=== PATIENT | male | born 1980 | race Caucasian/White ===

== ENCOUNTER 2018-06-24 07:33 | Emergency (ER) | payer OTHER ==
--- NOTE | 2018-06-24 07:37 | EDPHY ---
H & P Time Seen by Provider: 06/24/18 07:37 HPI/ROS: CHIEF COMPLAINT: Epigastric discomfort HISTORY OF PRESENT ILLNESS: The patient presents to the ED with complaints of severe by gastric discomfort which began last night. The patient denies any vomiting, hematemesis or melena. He denies significant alcohol or NSAID usage. The patient was seen at urgent care and discharged home yesterday. He returns to the ED today secondary to ongoing symptoms. The patient denies any lower abdominal complaints. He has no prior history of abdominal surgery. The patient denies any urinary complaints. REVIEW OF SYSTEMS: A comprehensive 10 point review of systems is otherwise negative aside from elements mentioned in the history of present illness. Source: Patient Exam Limitations: No limitations - Medical/Surgical History PMH: Past medical history: Noncontributory - Family History Significant Family History: No pertinent family hx - Social History Smoking Status: Never smoked Alcohol Use: Rarely - Physical Exam Exam: General Appearance: Alert, no distress Eyes: Pupils equal and round no pallor or injection ENT, Mouth: Mucous membranes moist Respiratory: There are no retractions, lungs are clear to auscultation Cardiovascular: Regular rate and rhythm Gastrointestinal: Moderate tenderness noted in the epigastrium, no peritoneal signs, normal bowel sounds Neurological: 5/5 strength noted all 4 extremities Skin: Warm and dry, no rashes Musculoskeletal: Neck is supple nontender Extremities: symmetrical, full range of motion Psychiatric: Patient is oriented X 3, there is no agitation Constitutional: Initial Vital Signs Temperature (C) 36.7 C 06/24/18 07:37 Heart Rate 67 06/24/18 07:37 Respiratory Rate 16 06/24/18 07:37 Blood Pressure 159/94 H 06/24/18 07:37 O2 Sat (%) 98 06/24/18 07:37 O2 Delivery Mode Room Air Allergies/Adverse Reactions: ibuprofen Allergy (Verified 06/24/18 07:36) Home Medications: Medication Instructions Recorded Aspirin 06/24/18 Pantoprazole Sodium [Protonix 40mg 40 mg PO DAILY #30 tab 06/24/18 (RX)] Tylenol 06/24/18 Medical Decision Making - Diagnostics Imaging Results: Imaging Impressions Abdomen CT 06/24/18 08:22 Impression: 1. Mild extrahepatic bile duct prominence with the common bile duct measuring up to 5.7 mm, and tapering at the ampulla with no choledocholithiasis. Correlation with LFTs, total bilirubin, and serum amylase level are suggested. There is no CT evidence of cholelithiasis, although if there is further clinical concern, sonography would be more sensitive. 2. Normal appearance of the appendix. 3. Mild uncomplicated colonic diverticulosis. Findings were discussed with Darrel Montgomery MD at 9:59, on 06/24/2018. ED Course/Re-evaluation: The patient presents the ED with severe epigastric pain. The patient had an IV established. He received IV fluids, antiemetics and a GI cocktail. Review of the patient's laboratory studies demonstrate no evidence of leukocytosis, pancreatitis or hepatitis. Given his moderate tenderness on exam a CT scan of the abdomen pelvis was ordered which demonstrates no evidence of a perforation, obstruction or obvious explanation of tenderness in the epigastrium. I re-evaluated the patient at 10:15 a.m.. I feel this likely is experiencing mild duodenitis or gastritis. The patient will be started on a proton pump inhibitor and advised to use Maalox. The patient is discharged home with customary aftercare instructions and return precautions. The patient is advised to follow up with Gastroenterology for any mild unimproved symptoms. Differential Diagnosis: Differential diagnosis considered includes peptic ulcer disease, gastritis, perforation, obstruction, pancreatitis, cholecystitis, hepatitis - Data Points Laboratory Results: Laboratory Results 06/24/18 07:45 06/24/18 07:45 06/24/18 06/24/18 07:45 07:45 WBC 11.04 10^3/uL H 10^3/uL (3.80-9.50) RBC 5.37 10^6/uL 10^6/uL (4.40-6.38) Hgb 15.4 g/dL g/dL (13.7-17.5) Hct 47.8 % % (40.0-51.0) MCV 89.0 fL fL (81.5-99.8) MCH 28.7 pg pg (27.9-34.1) MCHC 32.2 g/dL L g/dL (32.4-36.7) RDW 13.0 % % (11.5-15.2) Plt Count 372 10^3/uL 10^3/uL (150-400) MPV 9.8 fL fL (8.7-11.7) Neut % (Auto) 80.2 % H % (39.3-74.2) Lymph % (Auto) 13.0 % L % (15.0-45.0) Wilkin % (Auto) 4.5 % % (4.5-13.0) Eos % (Auto) 1.1 % % (0.6-7.6) Baso % (Auto) 0.4 % % (0.3-1.7) Nucleat RBC Rel Count 0.0 % % (0.0-0.2) Absolute Neuts (auto) 8.85 10^3/uL H 10^3/uL (1.70-6.50) Absolute Lymphs (auto) 1.44 10^3/uL 10^3/uL (1.00-3.00) Absolute Monos (auto) 0.50 10^3/uL 10^3/uL (0.30-0.80) Absolute Eos (auto) 0.12 10^3/uL 10^3/uL (0.03-0.40) Absolute Basos (auto) 0.04 10^3/uL 10^3/uL (0.02-0.10) Absolute Nucleated RBC 0.00 10^3/uL 10^3/uL (0-0.01) Immature Gran % 0.8 % % (0.0-1.1) Immature Gran # 0.09 10^3/uL 10^3/uL (0.00-0.10) Sodium 139 mEq/L mEq/L (135-145) Potassium 4.2 mEq/L mEq/L (3.5-5.2) Chloride 103 mEq/L mEq/L (97-110) Carbon Dioxide 24 mEq/l mEq/l (22-31) Anion Gap 12 mEq/L mEq/L (6-14) BUN 13 mg/dL mg/dL (7-23) Creatinine 0.8 mg/dL mg/dL (0.7-1.3) Estimated GFR > 60 Glucose 130 mg/dL H mg/dL (70-100) Calcium 9.6 mg/dL mg/dL (8.5-10.4) Total Bilirubin 0.8 mg/dL mg/dL (0.1-1.4) Conjugated Bilirubin 0.3 mg/dL mg/dL (0.0-0.5) Unconjugated Bilirubin 0.5 mg/dL mg/dL (0.0-1.1) AST 23 IU/L IU/L (17-59) ALT 41 IU/L IU/L (21-72) Alkaline Phosphatase 78 IU/L IU/L (38-126) Total Protein 6.9 g/dL g/dL (6.3-8.2) Albumin 4.5 g/dL g/dL (3.5-5.0) Lipase 89 IU/L IU/L (23-300) Medications Given: Discontinued Medications Al Hydroxide/Mg Hydroxide (Maalox Susp) 30 ml PO ONCE ONE Stop: 06/24/18 08:23 Last Admin: 06/24/18 08:29 Dose: 30 ml Hyoscyamine Sulfate (Levsin, Hyomax-Sl) 0.25 mg PO ONCE ONE Stop: 06/24/18 08:23 Last Admin: 06/24/18 08:29 Dose: 0.25 mg Sodium Chloride (Ns) 1,000 mls @ 0 mls/hr IV EDNOW ONE; Wide Open PRN Reason: Protocol Stop: 06/24/18 07:53 Last Admin: 06/24/18 08:01 Dose: 1,000 mls Lidocaine (Lidocaine 2% Viscous) 15 ml PO ONCE ONE Stop: 06/24/18 08:23 Last Admin: 06/24/18 08:29 Dose: 15 ml Departure - Departure Disposition: Home, Routine, Self-Care Clinical Impression: Abdominal pain Qualifiers: Abdominal location: epigastric Qualified Code(s): R10.13 - Epigastric pain Condition: Good Instructions: Epigastric Pain (ED) Additional Instructions: 1. Your CT scan laboratory testing demonstrates no obvious disease. 2. I do believe your having some inflammation of your stomach and small intestine has an explanation for your symptoms. Please avoid all medications such as ibuprofen, Aleve or Motrin. Please avoid caffeine and alcohol. 3. Please begin Protonix as directed. May also use Maalox as needed for discomfort. 4. Please return to the ED for markedly worsening symptoms or other concerns. 5. Please follow up with a software reverse engineer you have been referred to for any mild ongoing symptoms. Referrals: Toribio Gutierrez MD, FACG [Medical Doctor] - As per Instructions Prescriptions: Pantoprazole Sodium [Protonix 40mg (RX)] 40 mg PO DAILY #30 tab
[2018-06-24] MEDS ORDERED: NS 1,000 ML IV ONE (07:52)
[2018-06-24 07:58] LABS: PLATELET COUNT 372 10^3/uL (150-400)
[2018-06-24] MEDS ORDERED: LIDOCAINE 2% VISCOUS 15 ML UDCUP PO ONE (08:22)
[2018-06-24] MEDS ORDERED: MAG HYDROX/AL HYDROX/SIMETH 30 ML UDCUP PO ONE (08:22)
[2018-06-24] MEDS ORDERED: HYOSCYAMINE SULFATE 0.125 MG TAB PO ONE (08:22)
[2018-06-24] MEDS ORDERED: IOPAMIDOL (ISOVUE-300) 100 ML BTL ONE (09:10)
[2018-06-24 09:32] VITALS: BP 151/85
== END 2018-06-24 10:15 | disposition home or self-care (01) ==
DX: R10.13 Epigastric pain (principal); E86.9 Volume depletion, unspecified
CPT/HCPCS: Q9967